=== PATIENT | female | born 1935 | race Asian ===

== ENCOUNTER 2016-05-24 18:16 | Emergency (ER) | payer OTHER ==
[2016-05-24 19:06] LABS: ABSOLUTE NEUTROPHIL COUNT 3.8 K/mm3 (1.8-7.7); BASO % 0.3 % (0.2-1.0); EOS # 0.1 (0.0-0.5); EOS % 2.2 % (0.9-2.9); IMM NEUT% 0.3 % (0-1); LYMPH # 1.3 (1.0-4.8); LYMPH % 22.5 % (15-45); MEAN CELL VOLUME 59.9 fl (81.0-99.0); MEAN CORPUSCULAR HEMOGLOBIN 15.1 pg (27.0-31.0); MEAN CORPUSCULAR HGB CONC 25.1 g/dl (33.0-37.0); MEAN PLATELET VOLUME 9.7 fl (7.4-10.4); MONO # 0.6 (0.0-0.8); MONO % 9.5 % (4-12); NEUT % 65.2 % (43-75); PLATELET COUNT 361 K/mm3 (130-400); RED CELL DISTRIBUTION WIDTH 20.9 % (11.5-14.5)
[2016-05-24 19:12] LABS: HEMATOCRIT 19.9 % (37.0-47.0)
[2016-05-24 19:21] LABS: ALB/GLOB RATIO 1.5 (>1.0); ALBUMIN 3.8 gm/dL (3.5-5.7)
[2016-05-24 19:27] LABS: TROPONIN I 0.02 ng/ml (0.0-0.06)
[2016-05-24 19:32] LABS: CKMB ISOENZYME 6.6 ng/ml (0.6-6.3)
[2016-05-24] MEDS ORDERED: FUROSEMIDE 40 MG/4 ML VIAL ONE (19:49)
--- NOTE | 2016-05-24 19:49 | RAD ---
EXAMINATION:CHEST - 2 VIEWS CLINICAL INDICATION: Difficulty breathing. COMPARISON:none FINDINGS: Cardiomegaly is noted. There is moderate pulmonary vascular congestion. Prominent bronchovascular markings are evident. There is no adenopathy identified. Small bilateral pleural effusions are noted. There is no visible pneumothorax. The osseous structures are unremarkable for age. IMPRESSION: Cardiomegaly with CHF pattern. There are small bilateral pleural effusions.
[2016-05-24 19:54] LABS: INR 1.05; PARTIAL THROMBOPLASTIN TIME 21.5 SECONDS (24.5-33.0)
[2016-05-24] MEDS ORDERED: SODIUM CHLORIDE 0.9% 500 ML ONE (20:41)
[2016-05-24 20:50] LABS: ANISOCYTOSIS 2+; HYPOCHROMIA 3+; PLATELET ESTIMATE NORMAL (NORMAL)
[2016-05-24 22:13] LABS: PH,URINE 6.5 (5.0-8.0); SPECIFIC GRAVITY 1.015 (1.001-1.030); URINE BILIRUBIN NEGATIVE (NEGATIVE); URINE BLOOD NEGATIVE (NEGATIVE); URINE GLUCOSE (UA) NEGATIVE (NEGATIVE); URINE LEUKOCYTE ESTERASE 1+ (NEGATIVE); URINE NITRITE NEGATIVE (NEGATIVE); URINE PROTEIN NEGATIVE (NEGATIVE); URINE UROBILINOGEN NORMAL (0-1 mg/dl)
[2016-05-24 22:14] LABS: URINE APPEARANCE CLEAR; URINE COLOR YELLOW
[2016-05-24 22:23] LABS: URINE BACTERIA RARE; URINE EPITHELIAL CELLS 0 /hpf; URINE RBC 0 /hpf; URINE WBC 0-2 /hpf
== END 2016-05-24 21:34 | disposition short-term general hospital (02) ==
LOC: ED 18:16
DX: D64.9 Anemia, unspecified (principal); I50.9 Heart failure, unspecified
CPT/HCPCS: 83880; 85025; 82550; 82553; 87086; 80053; 83735; 85730; 85610; 84484; 81001; 71020; 86920; 86922; 86921; 86901; 86850 ×3; 99284; 96374; 36430; 99285; J1940; J7040; P9016